=== PATIENT | female | born 1990 | race American Indian/Alaskan Native ===

== ENCOUNTER 2019-04-26 22:57 | Outpatient (CLI) | payer MEDICAID, OTHER ==
[2019-04-27 00:08] VITALS: BP 107/63
[2019-04-27] MEDS ORDERED: LACTATED RINGERS 1,000 ML IV ONE (00:12)
[2019-04-27 00:42] LABS: Bilirubin,Urine NEG (Negative); Blood,Urine NEG (Negative); Color,Urine Yellow (Yellow); Hyaline Casts,Urine 1 /LPF; Mucus,Urine FEW /HPF; Protein,Urine <15 mg/dL mg/dL (Negative); Urobilinogen,Urine < 2.0 mg/dL (<2.0); WBC,Urine < 1.0 /HPF (0.0-6.0)
== END 2019-04-27 02:36 | disposition home or self-care (01) ==
LOC: TRG 22:57
PROVIDERS: ATTEND Obstetrics & Gynecology
DX: O26.893 Other specified pregnancy related conditions, third trimester (principal); R10.30 Lower abdominal pain, unspecified; R10.2 Pelvic and perineal pain; Z3A.32 32 weeks gestation of pregnancy
CPT/HCPCS: 59025; 81001; 96360; J7120

== ENCOUNTER 2019-04-29 13:23 | Outpatient (CLI) | payer MEDICAID ==
[2019-04-29 13:56] VITALS: BP 94/52
[2019-04-29] MEDS ORDERED: LACTATED RINGERS 1,000 ML IV SCH (14:00)
[2019-04-29] MEDS ORDERED: LACTATED RINGERS 500 ML IV ONE (14:00)
[2019-04-29 14:20] LABS: Bilirubin,Urine NEG (Negative); Blood,Urine NEG (Negative); Color,Urine Yellow (Yellow); Mucus,Urine FEW /HPF; Protein,Urine <15 mg/dL mg/dL (Negative); RBC,Urine < 1.0 /HPF (0.0-6.0); Urobilinogen,Urine < 2.0 mg/dL (<2.0); WBC,Urine < 1.0 /HPF (0.0-6.0)
[2019-04-29] MEDS ORDERED: VISTARIL PO ONE (15:00)
== END 2019-04-29 15:11 | disposition home or self-care (01) ==
LOC: TRG 13:23
PROVIDERS: ATTEND Obstetrics & Gynecology
DX: O47.03 False labor before 37 completed weeks of gestation, third trimester (principal); Z3A.32 32 weeks gestation of pregnancy
CPT/HCPCS: 59025; 81001; Q0177

== ENCOUNTER 2019-06-16 22:13 | Outpatient (CLI) | payer MEDICAID ==
[2019-06-16 22:38] VITALS: BP 101/66
== END 2019-06-16 22:59 | disposition home or self-care (01) ==
LOC: TRG 22:13
PROVIDERS: ATTEND Obstetrics & Gynecology
DX: O47.1 False labor at or after 37 completed weeks of gestation (principal); O26.893 Other specified pregnancy related conditions, third trimester; R10.2 Pelvic and perineal pain; Z3A.39 39 weeks gestation of pregnancy
CPT/HCPCS: 59025

== ENCOUNTER 2019-06-20 07:30 | Inpatient (IN) | payer MEDICAID ==
[2019-06-20] MEDS ORDERED: REGLAN IV NR (09:08)
[2019-06-20] MEDS ORDERED: PEPCID IV NR (09:08)
--- NOTE | 2019-06-20 09:16 | History and Physical Report ---
History of Present Illness Date of examination: 06/20/19 Date of admission: 06/20/19 Chief complaint: scheduled repeat csec History of present illness: This is a 28 yo at 40 weeks here for repeat csec. she has a hx of HSV2 taking valtrex. She has a hx of migraine s with neruo following. 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 She had a mild pericardial effusion resolved under MFM following. 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 denies: smoking, alcohol abuse, prescription drug abuse - Obstetrical History Expected Date of Delivery: 06/20/19 Actual Gestation: 40 Week(s) 0 Day(s) : 2 Para: 1 Hx # Term Pregnancies: 1 Number of Pregnancies: 0 Spontaneous Abortions: 0 Induced : 0 Number of Living Children: 1 Medications and Allergies Allergies Allergy/AdvReac Type Severity Reaction Status Date / Time No Known Allergies Allergy Unverified 05/13/14 05:51 Home Medications Medication Instructions Recorded Confirmed Last Taken Type No Known Home Medications [No 06/16/19 06/16/19 Unknown History Reported Home Medications] Review of Systems All systems: negative - Physical Exam Breasts: Positive: normal Cardiovascular: Regular rate, Normal S1 Lungs: Positive: Clear to auscultation, Normal air movement Abdomen: Positive: normal appearance, soft, normal bowel sounds. Negative: distention, tenderness, guarding Genitourinary (Female): Positive: normal external genitalia, normal perenium Vulva: both: normal Vagina: Positive: normal moisture Uterus: Positive: normal size Anus/Rectum: Positive: normal perianal skin Extremities: Positive: normal. Negative: tenderness Deep Tendon Reflex Grade: Normal +2 Results All other labs normal.
[2019-06-20] MEDS ORDERED: PITOCin/NS 20 UNIT/1000ML DRIP 20 UNITS/1,000 ML BAG IV SCH ×2 (10:00→15:00)
[2019-06-20] MEDS ORDERED: BICITRA PO NR (10:30)
[2019-06-20 10:39] LABS: Basophils % (Auto) 0.4 % (0.0-1.8); Eosinophils % (Auto) 0.3 % (0.0-4.3); Hematocrit 42.6 % (30.3-42.9); Lymphocytes # (Auto) 2.2 K/mm3 (1.2-5.4); Lymphocytes % (Auto) 25.1 % (13.4-35.0); Mean Corpuscular HGB Conc 33 % (30-34); Mean Corpuscular Volume 86 fl (79-97); Monocytes # (Auto) 0.5 K/mm3 (0.0-0.8); Monocytes % (Auto) 5.8 % (0.0-7.3); Platelet Count 178 K/mm3 (140-440); Red Blood Count 4.95 M/mm3 (3.65-5.03); Red Cell Distribution Width 14.7 % (13.2-15.2)
[2019-06-20] MEDS ORDERED: ANCEF/STERILE WATER 2 GM/20 ML 2 GM/20 ML SYRINGE IV ONE (11:36)
[2019-06-20] MEDS: LACTATED RINGERS 1,000 ML IV SCH ×2 (12:45→12:47)
[2019-06-20] MEDS ORDERED: DEXMEDETOMIDINE IV ONE (13:20)
[2019-06-20] MEDS ORDERED: ZOFRAN ONE (13:20)
[2019-06-20] MEDS ORDERED: TORADOL ONE (13:21)
[2019-06-20] MEDS ORDERED: NACL 0.9% IR ONE (13:48)
[2019-06-20] MEDS ORDERED: WATER FOR IRRIG STERILE IR ONE (13:48)
[2019-06-20] MEDS ORDERED: NEO SYNEPHRINE ONE ×2 (13:50→14:18)
[2019-06-20] MEDS ORDERED: SENOKOT PO PRN (14:41)
[2019-06-20] MEDS ORDERED: ANUCORT-HC PR PRN (14:41)
[2019-06-20] MEDS ORDERED: PHENERGAN PR PRN (14:41)
[2019-06-20] MEDS ORDERED: MORPHINE IV PRN ×2 (14:41)
[2019-06-20] MEDS ORDERED: MYLICON PO PRN (14:41)
[2019-06-20] MEDS ORDERED: TYLENOL PO PRN (14:41)
[2019-06-20] MEDS ORDERED: TUCKS PAD TP PRN (14:41)
[2019-06-20] MEDS ORDERED: ZOFRAN IV PRN ×2 (14:41→14:46)
[2019-06-20] MEDS ORDERED: LANSINOH TP PRN (14:41)
[2019-06-20] MEDS ORDERED: MILK OF MAGNESIA PO PRN (14:41)
[2019-06-20] MEDS ORDERED: NARCAN 0.4 MG/1 ML IV PRN (14:41)
[2019-06-20] MEDS ORDERED: TORADOL IV PRN ×2 (14:41)
[2019-06-20] MEDS ORDERED: NORCO 5/325 PO PRN (14:41)
[2019-06-20] MEDS ORDERED: DILAUDID IV PRN ×2 (14:46)
[2019-06-20] MEDS ORDERED: BENADRYL IV PRN (14:46)
--- NOTE | 2019-06-20 14:48 | Anesthesia Consultation ---
Anesthesia Consult and Med Hx Date of service: 06/20/19 - Airway Anesthetic Teeth Evaluation: Good ROM Head & Neck: Adequate Mental/Hyoid Distance: Adequate Mallampati Class: Class II Intubation Access Assessment: Probably Good - Pulmonary Exam CTA: Yes - Cardiac Exam Cardiac Exam: RRR - Pre-Operative Health Status ASA Pre-Surgery Classification: ASA2 Proposed Anesthetic Plan: Spinal - Pulmonary Hx Smoking: No Hx Asthma: No Hx Respiratory Symptoms: No SOB: No COPD: No Home Oxygen Therapy: No Hx Pneumonia: No Hx Sleep Apnea: No - Cardiovascular System Hx Hypertension: No Hx Coronary Artery Disease: No Hx Heart Attack/AMI: No Hx Angina: No Hx Percutaneous Transluminal Coronary Angioplasty (PTCA): No Hx Cardia Arrhythmia: No Hx Pacemaker: No Hx Internal Defibrillator: No Hx Valvular Heart Disease: No Hx Heart Murmur: No Hx Peripheral Vascular Disease: No - Central Nervous System Hx Neuromuscular Disorder: No Hx Seizures: No CVA: No Hx Back Pain: No Hx Psychiatric Problems: No - Gastrointestinal Hx Ulcer: No Hx Gastroesophageal Reflux Disease: No - Endocrine Hx Renal Disease: No Hx End Stage Renal Disease: No Hx Cirrhosis: No Hx Liver Disease: No Hx Insulin Dependent Diabetes: No Hx Non-Insulin Dependent Diabetes: No Hx Thyroid Disease: No Hx Hypothyroidism: No Hx Hyperthyroidism: No - Hematic Hx Anemia: No Hx Sickle Cell Disease: No - Other Systems Hx Alcohol Use: No Hx Substance Use: No Hx Cancer: No Hx Obesity: Yes (BMI 39.3)
--- NOTE | 2019-06-20 14:49 | Anesthesia Day of Surgery ---
Anesthesia Day of Surgery - Day of Surgery Patient Examined: Yes Patient H&P Reviewed: Yes Patient is NPO: Yes Beta Blockers: No Cardiac Clearance: No Pulmonary Clearance: No Christiano's Test: N/A
--- NOTE | 2019-06-20 14:50 | Post Anesthesia Evaluation ---
- Post Anesthesia Evaluation Patient Participated: Yes Airway Patent: Yes Stable Respiratory Function: Yes Nausea/Vomiting: Yes Temp > 96.8F: Yes Pain Manageable: Yes Adequeate Hydration: Yes Anesthesia Complications: No Block Receding Appropriately: Yes Patient on Ventilator: No
[2019-06-20] MEDS ORDERED: D5LR 1,000 ML IV SCH (15:00)
[2019-06-20] MEDS ORDERED: SODIUM CHLORIDE FLUSH SYRINGE 10 ML IV SCH ×2 (15:00)
[2019-06-21 04:58] LABS: Hematocrit 33.2 % (30.3-42.9); Hemoglobin 11.1 gm/dl (10.1-14.3)
[2019-06-21] MEDS: PERCOCET 5/325 PO PRN ×3 (05:30→18:44)
--- NOTE | 2019-06-21 08:32 | Progress Note ---
Assessment and Plan Pt is POD1 s/p repeat at term Labs and vital signs stable Breast and bottle feeding Needs abdominal binder Anticipate d/c to home tomorrow Subjective - Subjective Date of service: 06/21/19 Principal diagnosis: POD1 Interval history: Pt is POD1 s/p repeat LTCS at term. Patient reports: appetite normal, voiding normally, pain well controlled, flatus, ambulating normally [place]: doing well, nursing well, bottle feeding (both) Objective - Vital Signs Latest vital signs: Vital Signs Temp Pulse Resp BP BP Pulse Ox 06/21/19 05:30 18 06/21/19 04:20 98.6 F 72 20 100/66 96 06/21/19 01:56 20 06/20/19 23:37 98.5 F 73 18 106/55 99 06/20/19 21:28 20 06/20/19 20:56 98.2 F 76 18 111/73 96 06/20/19 16:26 97.8 F 20 105/63 06/20/19 16:25 70 100 06/20/19 15:45 97.6 F 68 12 87/53 99 06/20/19 15:35 65 12 99/55 99 06/20/19 15:20 62 12 95/53 99 06/20/19 15:05 66 14 100/55 96 06/20/19 14:50 68 14 98/56 96 06/20/19 14:45 65 14 100/60 96 06/20/19 14:43 97.7 F 61 14 106/61 96 06/20/19 11:10 98 H 114/75 06/20/19 10:46 98.8 F 98 H 18 114/75 Intake and Output 06/20/19 06/21/19 06/21/19 23:59 07:59 15:59 Intake Total 120 Output Total 165 500 Balance -45 -500 Intake: Oral 120 Output: Urine 165 500 Indwelling Catheter 90 500 Other: Total, Intake Amount 120 Total, Output Amount 90 500 - Exam Lungs: Present: Normal air movement Abdomen: Present: normal appearance, soft Uterus: Present: normal, firm, fundal height below umbilicus Extremities: Present: normal Incision: Present: dressed
--- NOTE | 2019-06-21 08:50 | Operative Report ---
Operative Report Operative Report: DATE OF OPERATION: 06/20/19 PREOPERATIVE DIAGNOSES: 1. Intrauterine gestation at 40 weeks 2. Previous csec 3. Desires repeat 4. Persistent occiput posterior position. POSTOPERATIVE DIAGNOSES: 1-4 ANJELICA OPERATION PERFORMED: Primary low transverse section. SURGEON: Karely Swan MD ANESTHESIA: Epidural. COMPLICATIONS: None. ESTIMATED BLOOD LOSS: see anesthesia record DRAINS: Huang catheter to the bladder. SPECIMENS TO PATHOLOGY: None OPERATIVE FINDINGS: A viable female infant with Apgars of 8 and 8 and birthweight 3317 g was delivered from a cephalic presentation. The cord contained 3 vessels. There was normal anterior fundal placenta. The amniotic fluid was clear. The uterus, fallopian tubes and ovaries were normal. DESCRIPTION OF OPERATION: The patient was brought to the operating suite in stable condition with epidural anesthesia on board and an indwelling catheter in place in the bladder. The patient was placed supine on the operating room table and rolled to her left side with a wedge. The abdomen was prepped and draped in standard fashion for section. After testing with forceps to assure an adequate anesthetic level, the surgery was commenced. We had counseled the patient extensively regarding the risks of the surgery including but not limited to stroke, embolus, phlebitis, pain, infection, hemorrhage, as well as injury to the and the internal organs such as the bowel, bladder, blood vessels, nerves, kidneys, ureters and pelvic organs. The patient was aware of the postoperative morbidity issues and recovery timeframes. The patient was aware she can form adhesions, which can result in obstruction of loop of bowel or ureter or chronic pain. She was aware that should she have hemorrhage and require blood transfusion, there was a small chance for exposure to hepatitis or HIV disease. With the scalpel, a Pfannenstiel skin incision was made. Dissection was carried down sharply through the subcutaneous tissues and fascia in a transverse plane with the scalpel, electrocautery and curved Vidales scissors. The fascia was sharply freed up superiorly and inferiorly from the underlying rectus muscles, which were bluntly and sharply divided. The peritoneum was entered carefully in a clear space with a curved hemostat. The peritoneal incision was then extended vertically with Metzenbaum scissors. A retractor and bladder blade were placed. A bladder flap was created by incising transversely through the peritoneum and vesicouterine fold and then bluntly dissecting the bladder distally. With the scalpel, a low transverse hysterotomy was commenced. The serosa and myometrium were scored with the scalpel. The uterine cavity was actually entered bluntly with a curved hemostat. The uterine incision was then extended laterally with the bleach machine operator's fingers. An intrauterine hand was placed and the head of the was brought up out of the pelvis into the uterine incision. With fundal pressure, he was delivered without difficulty. The nasopharynx and oropharynx were suctioned. The cord was doubly clamped and transected. The infant was then handed off to the nursery personnel. Apgars were good at 8 and 8. . Intravenous Pitocin was administered. The placenta was manually removed. The uterine cavity was then curetted with a dry sponge and freed of the remaining membranes. The edges of the uterine i ncision were grasped with Issa clamps. With the massage and the Pitocin, the uterus began to firm up normally. The uterine incision was then closed in 2 layers of 0 Vicryl sutures. The first suture was placed to the endometrium and myometrium. The second suture was placed through the endopelvic fascia and also reincorporated the bladder flap peritoneum. Peritoneal lavage was then performed. The pelvis and gutters were irrigated and suctioned and cleared of all blood and clots and amniotic fluid. The uterine incision was reinspected to assure hemostasis. The uterus, tubes and ovaries were inspected and were normal. Once we were satisfied with the hemostasis ( tissel and surgicell) , attention was turned to closure of the abdominal incision. The peritoneum, muscles and fascia were closed in layers using 0-Vicryl sutures. The subcutaneous tissue was closed with 3-0 plain sutures. The skin was closed with a subcuticular suture of 4-0 Vicryl followed by benzoin, Steri-Strips and a Telfa dressing. The patient was moved to the recovery room in stable condition with the Huang catheter draining clear urine. Instruments, sponge and needle counts were reported as correct. There were no complications.
--- NOTE | 2019-06-21 08:51 | Procedure Note ---
OB Delivery Note - Delivery Date of Delivery: 06/20/19 Surgeon: ELMIRA FIERRO Estimated blood loss: other (see anesthesia) - Section Preop diagnosis: repeat Postop diagnosis: same section procedure: section Disposition: PACU Complications: none Narrative: see op note - A at 1 minute: 8 at 5 minutes: 8 Infant Gender: Female (3317g)
[2019-06-21] MEDS: IBUPROFEN PO PRN ×3 (10:01→23:03)
[2019-06-21] MEDS: FEOSOL PO SCH (10:01)
[2019-06-21] MEDS: PRENATAL VITAMIN PO SCH (10:01)
[2019-06-21] MEDS ORDERED: M-M-R II VACCINE SUB-Q ONE (14:43)
[2019-06-21] MEDS ORDERED: BOOSTRIX IM ONE (14:43)
[2019-06-22] MEDS: PERCOCET 5/325 PO PRN ×4 (00:19→20:13)
[2019-06-22] MEDS: IBUPROFEN PO PRN ×4 (05:11→23:50)
--- NOTE | 2019-06-22 08:19 | Progress Note ---
Assessment and Plan Pt is POD2 s/p repeat at term Labs and vital signs stable Breast and bottle feeding Anticipate d/c to home tomorrow Subjective - Subjective Date of service: 06/22/19 Principal diagnosis: POD2 Interval history: Pt is POD2 s/p repeat LTCS at term. Patient reports: appetite normal, voiding normally, pain well controlled, flatus, ambulating normally : doing well, nursing well (both), bottle feeding Objective - Vital Signs Latest vital signs: Vital Signs Temp Pulse Resp BP Pulse Ox 06/22/19 01:27 98.5 F 61 20 98/51 98 06/21/19 16:44 98.2 F 82 18 106/65 97 Intake and Output 06/21/19 06/22/19 06/22/19 23:59 07:59 15:59 Intake Total 1320 480 Balance 1320 480 Intake: Oral 720 480 Intake, Free Water 600 Other: Total, Intake Amount 240 240 # Voids Void 1 1 - Exam Lungs: Present: Normal air movement Abdomen: Present: normal appearance, soft Uterus: Present: normal, firm, fundal height below umbilicus Extremities: Present: normal Incision: Present: dressed
[2019-06-22] MEDS: PRENATAL VITAMIN PO SCH (11:09)
[2019-06-22] MEDS: FEOSOL PO SCH (11:09)
[2019-06-23] MEDS: PERCOCET 5/325 PO PRN ×2 (01:43→09:43)
[2019-06-23] MEDS: IBUPROFEN PO PRN ×2 (06:13→13:58)
[2019-06-23] MEDS: FEOSOL PO SCH (09:42)
[2019-06-23] MEDS: PRENATAL VITAMIN PO SCH (09:45)
--- NOTE | 2019-06-23 16:19 | Progress Note ---
Assessment and Plan A: POD#2 s/p repeat section doing well, Pt requests discharge P: Discharge home with follow up in two weeks with Dr Swan Subjective - Subjective Date of service: 06/23/19 Principal diagnosis: POD2 s/p repeat Interval history: Pt asks to go home today. She had no overnight events and is passing flatus. Patient reports: appetite normal, voiding normally, pain well controlled, flatus, ambulating normally, no bowel movement [place]: doing well Objective - Vital Signs Latest vital signs: Vital Signs Temp Pulse Resp BP Pulse Ox 06/23/19 07:22 98.1 F 64 18 103/62 06/23/19 06:13 20 06/23/19 01:43 20 06/23/19 01:35 98.0 F 66 20 104/67 98 06/22/19 23:50 20 06/22/19 20:13 18 Intake and Output 06/23/19 06/23/19 06/23/19 06:59 14:59 22:59 Intake Total 240 720 Balance 240 720 Intake: Oral 240 720 Other: Total, Intake Amount 240 240 # Voids Void 1 1 - Exam Breasts: Present: deferred Cardiovascular: Present: Regular rate Lungs: Present: Clear to auscultation Abdomen: Present: soft (obese ), normal bowel sounds Uterus: Present: fundal height below umbilicus Extremities: Present: normal Incision: Present: intact
--- NOTE | 2019-06-23 16:22 | Discharge Summary ---
Providers - Providers Date of Admission: 06/20/19 09:41 Date of discharge: 06/23/19 Attending physician: ELMIRA FIERRO MD Primary care physician: CLAUDE MAY Hospitalization Reason for admission: section Delivery: Procedure: section, repeat low transverse Procedure details: Please see operative report Incision: intact complications: none Discharge diagnosis: IUP at term delivered baby: female Hospital course: Pt was admitted for repeat section which she tolerated well. Her postoperative course was uncomplicated and she met discharge criteria on POD#2. She will follow up in the office in two weeks with Dr Fierro. Condition at discharge: Stable Disposition: DC-01 TO HOME OR SELFCARE - Discharge Diagnoses (1) Term of female Status: Acute (2) Obesity Status: Acute Qualifiers: Obesity type: unspecified obesity type Obesity classification: adult class 2 (BMI 35 - 39.9) Serious obesity comorbidity presence: unspecified whether serious comorbidity present Body mass index: BMI 36.0-36.9 Qualified Code(s): E66.9 - Obesity, unspecified; Z68.36 - Body mass index (BMI) 36.0-36.9, adult Plan - Discharge Medications Prescriptions: Ferrous Sulfate [Feosol 325 MG tab] 325 mg PO BID #30 tablet Ibuprofen [Motrin] 600 mg PO Q8H PRN #30 tablet PRN Reason: Pain oxyCODONE /ACETAMINOPHEN [Percocet 5/325] 1 tab PO Q6HR PRN #30 tablet PRN Reason: Pain - Provider Discharge Summary Activity: routine, no sex for 6 weeks, no heavy lifting 4 weeks, no strenuous exercise Diet: routine Instructions: routine Additional instructions: [] Smoking cessation referral if applicable(refer to patient education folder for contact #) [] Refer to [facility] Booklet Call your doctor immediately for: * Fever > 100.5 * Heavy vaginal bleeding ( >1 pad per hour) * Severe persistent headache * Shortness of breath * Reddened, hot, painful area to leg or breast * Drainage or odor from incision. * Keep incision clean and dry at all times and follow doctor's instructions regarding bathing/showering - Follow up plan Follow up: ELMIRA FIERRO MD [Staff Physician] - 07/05/19 (Please call to schedule incision check)
[2019-06-23 17:50] VITALS: BP 121/72
== END 2019-06-23 17:35 | disposition home or self-care (01) | DRG 765 ==
LOC: APU 09:41 → OB 17:06
PROVIDERS: ADMIT Obstetrics & Gynecology; ATTEND Obstetrics & Gynecology
PROC: 10D00Z1 Extraction of Products of Conception, Low, Open Approach (ICD-10-PCS; principal; 2019-06-20)
PROC: 3E0234Z Introduction of Serum, Toxoid and Vaccine into Muscle, Percutaneous Approach (ICD-10-PCS; 2019-06-21)
DX: O34.211 Maternal care for low transverse scar from previous cesarean delivery (principal); O99.354 Diseases of the nervous system complicating childbirth; O99.214 Obesity complicating childbirth; O64.0XX0 Obstructed labor due to incomplete rotation of fetal head, not applicable or unspecified; G43.909 Migraine, unspecified, not intractable, without status migrainosus; Z3A.40 40 weeks gestation of pregnancy; Z37.0 Single live birth; Z23 Encounter for immunization
CPT/HCPCS: 36415; 85014; 85018; 85025; 86850; 86900; 86901; G0378; C9250; J0690; J1170; J1885; J2370; J2405; J2590; J2765; J3490; J7120; J7121